=== PATIENT | female | born 1970 | race Two or more races ===

== ENCOUNTER 2022-08-28 15:14 | Emergency (ER) | payer OTHER, SELFPAY ==
--- NOTE | 2022-08-28 15:20 | ED.CPR ---
HPI - CPR General Chief Complaint: Cardiac Arrest/CPR Stated Complaint: Cardiac ETA Time Seen by Provider: 08/28/22 15:20 Source: EMS Mode of arrival: EMS Limitations: other (cardiac arrest) History of Present Illness HPI narrative: 51 yo with metastatic breast ca /jaundice brought in in full cardiac arrest,she arrive pulseless CPR ongoing. She was found in the floor unresponsive at 14.30 ACL started I gel was placed with good endtital C02.She arrive unresponsive and pulseless MD complaint: found unresponsive Time: 14:30 Timing confirmed by: family member Place: home Initial findings in the field: unresponsive, no respirations, no pulse and other rhythm (asystole) Treatments prior to arrival: other airway device (Igel with endtital Co2) Related Data Allergies Allergy/AdvReac Type Severity Reaction Status Date / Time No Known Allergies Allergy Unverified 01/31/20 17:17 Review of Systems Review of Systems: Yes Unobtainable due to mental condition PMFSH Past Medical History PMFSH Narrative: breast ca metastatic Social History Social History Advance Directives: No Advance Directives Information Provided: No Physical Exam Vital Signs: Vital Signs: Last Vital Signs Temp 0 F L 08/28/22 16:16 Pulse 0 L 08/28/22 16:16 Resp 0 L 08/28/22 16:16 BP 00/00 L 08/28/22 16:16 Pulse Ox 0 L 08/28/22 16:16 BMI result Body Mass Index 22.8 No vital signs Const: Other: Jaundice unresponsive Nutritional Appearance: cachectic Eyes: Other: Pupils are fixed and dilated no reactive Resp: Other: No spontaneous respiration Cardio: Other: No heart sounds GI: Other: Abdomen nondistended Skin: Other: Jaundice Course Reevaluation(s) Reevaluation #1: Basically the patient the arrived at that on arrival I did a bedside ultrasound no cardiac activity, no pulse in even by Doppler, she was pronounced a 15:18 Time: 15:38 Reevaluation #2: here pt was actually on Hospice care Time: 15:56 Reevaluation #3: Spoke with ME decline the case Time: 16:22 Discharge Plan Discharge Clinical Impression: Cardiac arrest Patient Disposition: Date/Time: 08/28/22 15:18
--- NOTE | 2022-08-28 15:56 | PC.NURSE ---
RN called [facility] at 1545 and spoke with Jay. After provided all requested/necessary information, the pt is being declined . Reference #: [id number]
[2022-08-28 16:16] VITALS: BP 00/00; PULSE 0; RESP 0; TEMP -17.7; TEMP 0; O2SAT 0; BMI 22.8
--- NOTE | 2022-08-28 16:18 | PC.NURSE ---
, JANICE WAS PRESENT IN THE ED, HE PROVIDED DR OLSEN WITH MED HX AND THAT PATIENT WAS ON HOSPICE FOLLOWING A 10 YEAR CANCER HISTORY, BREAST WITH METS. HER JEWELRY WAS GIVEN TO HER . 2 SETS OF EARRING AND A NECKLACE
--- NOTE | 2022-08-28 16:20 | PC.NURSE ---
[place] [facility] [place] staff
--- NOTE | 2022-08-28 16:24 | MHC.EDTECH ---
ME called at 1559. ME declined the case at [phone] [place] .
== END 2022-08-28 16:20 | disposition expired ==
PROVIDERS: Emergency Provider Emergency Medicine
DX: I46.9 Cardiac arrest, cause unspecified (principal); C50.919 Malignant neoplasm of unspecified site of unspecified female breast; C79.9 Secondary malignant neoplasm of unspecified site; R17 Unspecified jaundice
CPT/HCPCS: 99283; 99284